=== PATIENT | female | born 1975 | race Caucasian/White ===

== ENCOUNTER 2016-09-07 10:38 | Emergency (ER) | payer SELFPAY ==
[2016-09-07 11:03] LABS: STREP A SCREEN NEGATIVE (NEGATIVE)
[2016-09-07 11:10] LABS: INFLUENZA A NEGATIVE (NEGATIVE); INFLUENZA B NEGATIVE (NEGATIVE)
--- NOTE | 2016-09-07 11:18 | Emergency Department Record ---
History of Present Illness - General Chief complaint: ENT Stated complaint: SORE THROAT Time Seen by Provider: 09/07/16 11:13 Source: Patient Mode of Arrival: Ambulatory Limitations: No limitations - History of Present Illness Initial comments: 41 yo female presents to ED with a CC of cough and congestion symptoms for the past 2 days. Patient reports loss of voice and non-productive cough symptoms. Patient denies health problems other than thyroid issues. MD complaint: Sore throat Onset/Timin -: Days(s) Location: Throat, Other Severity: Mild Severity scale (1-10): 3 Quality: Aching Improves with: None Worsens with: None Context- Ear: Recent illness Associated Symptoms: Cough, Fever, Pain with swallowing, Other - Related Data Home Medications Medication Instructions Recorded Confirmed Last Taken Minocycline HCl 100 mg PO BID 09/07/16 09/07/16 Unknown Sertraline HCl [Zoloft] 100 mg PO DAILY 09/07/16 09/07/16 Unknown Allergies Allergy/AdvReac Type Severity Reaction Status Date / Time Penicillins Allergy Intermediate RASH Verified 09/07/16 10:49 morphine AdvReac Severe VOMITING Verified 09/07/16 10:49 Travel Screening - Travel/Exposure Within Last 30 Days Have you traveled within the last 30 days?: No Review of Systems Constitutional: Reports: Fever, Malaise. Denies: Chills, Night sweats, Weakness Eyes: Denies: Eye discharge, Eye pain ENT: Denies: Dental pain, Ear pain, Epistaxis Respiratory: Denies: Cough, Dyspnea Cardiovascular: Denies: Chest pain, Dyspnea on exertion Endocrine: Denies: Fatigue, Heat or cold intolerance Gastrointestinal: Denies: Abdominal pain, Nausea, Vomiting Genitourinary: Denies: Dysuria, Frequency, Hematuria, Incontinence Musculoskeletal: Denies: Arthralgia, Back pain, Gout, Joint swelling Skin: Denies: Bruising, Change in color Neurological: Denies: Abnormal gait, Confusion, Headache, Seizure Psychiatric: Denies: Anxiety Hematological/Lymphatic: Denies: Anemia, Blood Clots Past Medical History - SOCIAL HISTORY Smoking Status: Current every day smoker Alcohol Use: Occassional Drug Use: None - RESPIRATORY Hx Respiratory Disorders: No - CARDIOVASCULAR Hx Cardio Disorders: No - NEURO Hx Neuro Disorders: No - GI Hx GI Disorders: No - Hx Genitourinary Disorders: No - ENDOCRINE Hx Endocrine Disorders: No Comment:: Graves Disease - MUSCULOSKELETAL Hx Musculoskeletal Disorders: Yes - PSYCH Hx Psych Problems: No - HEMATOLOGY/ONCOLOGY Hx Hematology/Oncology Disorders: No Family Medical History Any Significant Family History?: No Physical Exam - General General Appearance: Alert, Oriented x3, Cooperative, No acute distress Limitations: No limitations - Head Head exam: Atraumatic, Normocephalic, Normal inspection Head exam detail: negative: Abrasion, Contusion, Duron's sign, General tenderness, Hematoma, Laceration - Eye Eye exam: Normal appearance. negative: Conjunctival injection, Periorbital swelling, Periorbital tenderness, Scleral icterus - ENT Ear exam: negative: Auricular hematoma, Auricular trauma Nasal Exam: negative: Active bleeding, Discharge, Dried blood, Foreign body Mouth exam: negative: Drooling, Laceration, Muffled voice, Tongue elevation - Neck Neck exam: Normal inspection. negative: Meningismus, Tenderness - Respiratory Respiratory exam: Normal lung sounds bilaterally. negative: Rales, Respiratory distress, Rhonchi, Stridor - Cardiovascular Cardiovascular Exam: Regular rate, Normal rhythm, Normal heart sounds - GI/Abdominal GI/Abdominal exam: Soft. negative: Rebound, Rigid, Tenderness - Rectal Rectal exam: Deferred - exam: Deferred - Extremities Extremities exam: Normal inspection. negative: Calf tenderness, Pedal edema, Tenderness - Back Back exam: Denies: CVA tenderness (R), CVA tenderness (L) - Neurological Neurological exam: Alert, Normal gait, Oriented X3 - Psychiatric Psychiatric exam: Normal affect, Normal mood - Skin Skin exam: Normal color. negative: Abrasion Type of lesion: negative: abrasion Course Vital Signs 09/07/16 10:40 Temperature 97.9 F Pulse Rate 74 Respiratory 18 Rate Blood Pressure 147/105 Pulse Ox 98 - Reevaluation(s) Reevaluation #1: 09/07/16 11:24 Rapid strep and influenza are both negative, symptoms appear c/w viral URI. Patient appears stable for discharge with instructions for symptomatic treatment at home. Medical Decision Making - Lab Data Lab Results 09/07/16 Range/Units 10:50 Influenza Type A Ag Negative (NEGATIVE) Influenza Type B Ag Negative (NEGATIVE) Group A Strep Screen Negative (NEGATIVE) Disposition Disposition: Discharge Clinical Impression: URI (upper respiratory infection) Qualifiers: URI type: unspecified URI Qualified Code(s): J06.9 - Acute upper respiratory infection, unspecified Disposition: Home, Self-Care Condition: (2) Stable Instructions: Upper Respiratory Infection (ED) Additional Instructions: Return to ED if your symptoms worsen or if you have any concerns. Follow-up with your family doctor in 3-5 days as directed. Forms: Patient Portal Access Time of Disposition: 11:24
== END 2016-09-07 11:25 | disposition home or self-care (01) ==
LOC: ER 10:38
DX: J06.9 Acute upper respiratory infection, unspecified (principal)
CPT/HCPCS: 87400; 87880; 99282

== ENCOUNTER 2017-03-05 06:03 | Emergency (ER) | payer BC ==
[2017-03-05] MEDS ORDERED: CLINDAMYCIN 150 MG CAP PO ONE (06:24)
[2017-03-05] MEDS: TRAMADOL HCL 50 MG TABLET PO ONE ×2 (06:28→06:29)
--- NOTE | 2017-03-05 06:31 | Emergency Department Record ---
History of Present Illness - General Chief complaint: Jaw Swelling Stated complaint: JAW PAIN/SWELLING Time Seen by Provider: 03/05/17 06:23 Source: Patient Mode of Arrival: Ambulatory Limitations: No limitations - History of Present Illness Initial comments: 42 yo female presents to ED with a CC of STS and pain to the right lower mandible x 1 day. Patient denies dental pain or injury, and the patient denies fevers, chills, or recent illness. Patient denies health problems at her baseline. Patient denies drainage from her facial lesion. MD complaint: Other Onset/Timin -: Days(s) Severity: Severe Severity scale (1-10): 10 Quality: Aching Consistency: Constant Improves with: Pressure Worsens with: Movement Associated Symptoms: Other - Related Data Home Medications Medication Instructions Recorded Confirmed Last Taken Minocycline HCl 100 mg PO BID 09/07/16 03/05/17 03/04/17 Levothyroxine Sodium 112 mcg PO QAM 03/05/17 03/05/17 03/04/17 [Levothyroxine Sodium] Previous Rx's Medication Instructions Recorded Clindamycin HCl 300 mg PO Q6H #39 capsule 03/05/17 Allergies Allergy/AdvReac Type Severity Reaction Status Date / Time Penicillins Allergy Intermediate RASH Verified 09/07/16 10:49 morphine AdvReac Severe VOMITING Verified 09/07/16 10:49 Travel Screening - Travel/Exposure Within Last 30 Days Have you traveled within the last 30 days?: No - Travel Symptoms Symptom Screening: Weakness, Chills Review of Systems Constitutional: Denies: Chills, Fever, Malaise, Night sweats Eyes: Denies: Eye discharge, Eye pain ENT: Denies: Congestion, Ear pain, Epistaxis Respiratory: Denies: Cough, Dyspnea Cardiovascular: Denies: Chest pain, Dyspnea on exertion Endocrine: Denies: Fatigue, Heat or cold intolerance Gastrointestinal: Denies: Abdominal pain, Nausea, Vomiting Genitourinary: Denies: Incontinence, Retention Musculoskeletal: Denies: Arthralgia, Back pain, Gout, Joint swelling Skin: Reports: Lesions (right lower anterior mandibular region). Denies: Bruising, Change in color, Change in hair/nails Neurological: Denies: Abnormal gait, Confusion, Headache, Seizure Psychiatric: Denies: Anxiety Hematological/Lymphatic: Denies: Anemia, Blood Clots Past Medical History - SOCIAL HISTORY Smoking Status: Current every day smoker Alcohol Use: Rare Drug Use: None - RESPIRATORY Hx Respiratory Disorders: No - CARDIOVASCULAR Hx Cardio Disorders: No - NEURO Hx Neuro Disorders: No - GI Hx GI Disorders: No - Hx Genitourinary Disorders: No - ENDOCRINE Hx Endocrine Disorders: Yes Comment:: Graves Disease - MUSCULOSKELETAL Hx Musculoskeletal Disorders: Yes - PSYCH Hx Psych Problems: No - HEMATOLOGY/ONCOLOGY Hx Hematology/Oncology Disorders: No Family Medical History Any Significant Family History?: No Family Hx Comment (NOT TO BE USED IN PLACE OF ITEMS BELOW): DENIES Physical Exam - General General Appearance: Alert, Oriented x3, Cooperative, Anxious Limitations: No limitations - Head Head exam: Atraumatic, Normocephalic, Other (mild cutaneous STS to the right anterior mandibular region) Head exam detail: negative: Abrasion, Contusion, Duron's sign, General tenderness, Hematoma, Laceration - Eye Eye exam: negative: Normal appearance, Conjunctival injection, Periorbital swelling, Periorbital tenderness, Scleral icterus - ENT Ear exam: negative: Auricular hematoma, Auricular trauma Nasal Exam: negative: Active bleeding, Discharge, Dried blood, Foreign body Mouth exam: negative: Drooling, Laceration, Muffled voice, Tongue elevation - Neck Neck exam: Normal inspection. negative: Meningismus, Tenderness - Respiratory Respiratory exam: Normal lung sounds bilaterally. negative: Rales, Respiratory distress, Rhonchi, Stridor - Cardiovascular Cardiovascular Exam: Regular rate, Normal rhythm, Normal heart sounds - GI/Abdominal GI/Abdominal exam: Soft. negative: Rebound, Rigid, Tenderness - Rectal Rectal exam: Deferred - exam: Deferred - Extremities Extremities exam: Normal inspection. negative: Pedal edema, Tenderness - Back Back exam: Denies: CVA tenderness (R), CVA tenderness (L) - Neurological Neurological exam: Alert, Normal gait, Oriented X3 - Psychiatric Psychiatric exam: Normal affect, Normal mood - Skin Skin exam: Normal color Type of lesion: Abscess Course Vital Signs 03/05/17 06:10 Temperature 97.9 F Pulse Rate [ 83 Pulse Ox Probe] Respiratory 18 Rate Blood Pressure 142/93 [Left Arm] Pulse Ox 100 - Reevaluation(s) Reevaluation #1: 03/05/17 06:31 Patient has what appears to be a small cutaneous abscess to the right lower face measuring approximately 1 cm in diameter. On examination, patient has asked for pain medications several times, given Tramadol which she refused. MAPS reviewed and demonstrates recent [place] prescription 01/24/14 from her PCP. Patient was instructed to call her PCP for further pain management as [place] is a restricted narcotic and I do not feel is indicated for a 1.0 cm cutaneous abscess. Due the size and location of the lesion, incision is not recommended at this time. Will initiate treatment with Clindamycin as directed. Patient appears stable for discharge at this time. Reevaluation #2: 03/05/17 06:38 I explained to the patient that [place] was not appropriate for her cutaneous abscess, and I reccommeded that she call her PCP this morning for furhter pain management as Tramadol was refused. Patient stood up and left without her prescription for Clindamcyin or discharge instructions. Patient eloped prior to completion of her ED visit. Disposition Disposition: Other (Eloped) Clinical Impression: Facial abscess Disposition: Against Medical Advice Condition: (2) Stable Instructions: Abscess (ED) Additional Instructions: return to ED if your symptoms worsen or if you have any concerns. Clindamycin as directed. Follow-up with Dr. Gutierrez in 1-3 days as directed. Prescriptions: Clindamycin HCl 300 mg PO Q6H #39 capsule Forms: Patient Portal Access Time of Disposition: 06:35 Quality - Quality Measures Quality Measures: N/A - Blood Pressure Screening Does Patient Have Any of the Following: No Blood Pressure Classification: Hypertensive Reading Systolic Measurement: 142 Diastolic Measurement: 93 Screening for High Blood Pressure: < First Hypertensive BP, F/U Documented > [ [id number]] First Hypertensive Follow-up Interventions: Referral to alternative/primary care provider.
== END 2017-03-05 06:35 | disposition left against medical advice (07) ==
LOC: ER 06:03
DX: K12.2 Cellulitis and abscess of mouth (principal)
CPT/HCPCS: 99283